=== PATIENT | female | born 1965 | race Caucasian/White ===

== ENCOUNTER 2018-12-13 10:27 | Day surgery (SDC) | payer OTHER ==
[2018-12-13] MEDS ORDERED: MIDAZOLAM 1 MG/ML 2 ML INJ ×2 (11:59)
[2018-12-13] MEDS ORDERED: FENTAnyl 50 MCG/ML VIAL (11:59)
== END 2018-12-13 15:15 | disposition home or self-care (01) ==
LOC: GIL 10:27
DX: Z12.11 Encounter for screening for malignant neoplasm of colon (principal); D12.5 Benign neoplasm of sigmoid colon; K64.8 Other hemorrhoids; E11.9 Type 2 diabetes mellitus without complications; I10 Essential (primary) hypertension
CPT/HCPCS: 45385; 82962; 84703; 88305